=== PATIENT | male | born 1945 | race Caucasian/White ===

== ENCOUNTER 2020-11-07 13:12 | Inpatient (IN) | payer OTHER ==
[~2020-11-07] VITALS: Ht 182.9 cm; Wt 77.1 kg
[2020-11-07 13:17] VITALS: BP 155/87
[2020-11-07] MEDS ORDERED: PRINIVIL20 MG PO (13:37)
[2020-11-07 13:42] LABS: ABSOLUTE NEUTROPHILS 2.9 thou/uL (1.4-8.2); BASOPHILS 0.6 % (0.0-2.0); EOSINOPHILS 2.9 % (0.0-3.0); HEMATOCRIT 41.1 % (42.0-52.0); HEMOGLOBIN 13.2 gm/dL (14.0-18.0); LYMPHOCYTES 22.9 % (24.0-44.0); MCHC 32.1 g/dL (28.0-37.0); MCV 78.1 fL (80.0-100.0); PLATELET COUNT 221 thou/uL (150-400); POLYS 64.6 % (36.0-66.0); RBC 5.26 mil/uL (4.50-6.00); RDW 14.6 % (10.5-14.5); WBC 4.4 thou/uL (4.0-11.0)
[2020-11-07 14:20] LABS: ANION GAP 10 mmol/L (7-16); BUN 17 mg/dL (7-18); CALCIUM 8.7 mg/dL (8.5-10.1); CHLORIDE 106 mmol/L (98-107); CO2 25 mmol/L (21-32); CREATININE 1.4 mg/dL (0.7-1.3); GLUCOSE 103 mg/dL (74-106); POTASSIUM 4.4 mmol/L (3.5-5.1); SODIUM 141 mmol/L (136-145)
[2020-11-07 14:30] LABS: ALBUMIN 3.8 g/dL (3.4-5.0); SGOT 15 U/L (15-37); SGPT 20 U/L (16-63); TOTAL BILIRUBIN 0.4 mg/dL (0.2-1.0); TOTAL PROTEIN 7.4 g/dL (6.4-8.2); TROPONIN-I <0.06 ng/mL (<0.06)
--- NOTE | 2020-11-07 15:01 | EKG ---
[address] [place] [place] [address] ELECTROCARDIOGRAM REPORT Name: ADITYA NEVAREZ Room #: REG Lorenza#: [id number] Admission: 11/07/20 Attend Phys: Discharge: Date of : 47 Report #: [id number] [facility] ED Test Date: 2020-11-07 Test Time: 13:14:35 Pat Name: ADITYA NEVAREZ Department: Room: Gender: M Director Of Grants: ADEN : 1945 Requested By: Capri Yap Order Number: [id number] MD: Zain Ramsey Measurements Intervals [place] Rate: 69 P: 69 GA: 148 QRS: 58 QRSD: 134 T: 32 QT: 413 QTc: 443 Interpretive Statements Sinus rhythm Probable left atrial enlargement Right bundle branch block No previous ECG available for comparison Electronically Signed On 11-07-2020 15:01:42 PERSONNEL COUNSELOR by Zain Ramsey [email or web address] <ELECTRONICALLY SIGNED> By: Zain Ramsey MD 11/07/20 1501 1314 1314 Zain Ramsey MD /BARTOLOME
[2020-11-07 17:01] VITALS: BP 131/70
[2020-11-07 17:19] VITALS: BP 150/73
[2020-11-07 17:51] LABS: % SATURATION 14 % (20-39); IRON 43 ug/dL (65-175); TIBC 298 ug/dL (250-450)
[2020-11-07 17:52] LABS: CHOLESTEROL 150 mg/dL (<200); HDL CHOLESTEROL 36 mg/dL (>40); LDL CHOLESTEROL 99 mg/dL (<100); TC:HDL 4.2 Ratio (Not establshd); TRIGLYCERIDE 79 mg/dL (<150); VLDL 16 mg/dL (<40)
[2020-11-07 18:00] VITALS: BP 150/73
--- NOTE | 2020-11-07 18:28 | NUR ---
PT CARE ASSUMED AT 1745. ASSESSMENTS CHARTED. MEDICATION CHARTED. LAC IV. SINUS RHYTHM. UP AD AYDEN. PT COMPLAINED OF CHEST PAIN UPON EXERTION. NM STRESS TEST SCHEDULED. NPO AFTER 0000. CXR NEGATIVE. NKDA. TROPONIN NORMAL.
[2020-11-07 18:29] LABS: FOLIC ACID 15.7 ng/mL (8.6-58.9)
[2020-11-07 21:10] VITALS: BP 134/86
[2020-11-08] VITALS (14 sets, daily range): BP systolic 113–144; BP diastolic 71–91
--- NOTE | 2020-11-08 04:51 | NUR ---
ASSUMED PT CARE AT 1900. VSS. PT A&0X4. PT HAD A AN UNEVENTFUL NOC. TO COMPLAINTS OF CHEST PAIN, WILL CONTINUE TO MONITOR.
[2020-11-08 04:53] LABS: CALCIUM 8.4 mg/dL (8.5-10.1); CREATININE 1.3 mg/dL (0.7-1.3); MAGNESIUM 2.1 mg/dL (1.8-2.4); POTASSIUM 4.2 mmol/L (3.5-5.1)
[2020-11-08 05:07] LABS: HEMATOCRIT 38.3 % (42.0-52.0); HEMOGLOBIN 12.2 gm/dL (14.0-18.0); MCHC 31.9 g/dL (28.0-37.0); MCV 78.3 fL (80.0-100.0); RBC 4.89 mil/uL (4.50-6.00); WBC 4.7 thou/uL (4.0-11.0)
--- NOTE | 2020-11-08 09:09 | NUR ---
ASSUMED PT CARE AT 0700. PT RESTING IN BED, PT NPO. ASSESSMENT PERFOMED. PT DENIES PAIN AT THIS TIME. VSS. WILL CONTINUE TO MONITOR.
--- NOTE | 2020-11-08 11:53 | NUR ---
PT AWAITING FOR NATURAL GAS FIELD PROCESSING SUPERVISOR. VSS. PTS ASSESSMENT UNCHANGED. WILL CONTINUE TO MONITOR.
--- NOTE | 2020-11-08 14:47 | NUR ---
PT RETURNED FROM NURSE INFORMATICS EDUCATOR. PT DENIES PAIN. PT IS SLEEPY. PTS GROIN SITE IS SOFT, NON TENDER, NO HEMATOMA PRESENT WITH MINX DRESSING. VSS. WILL CONTINUE TO MONITOR.
--- NOTE | 2020-11-08 17:30 | CATHLAB ---
[facility] [place] [address] INVASIVE PROCEDURE REPORT Name: ADITYA NEVAREZ Room #: 208-P ADM IN M.R.#: [id number] Admission: 11/07/20 Attend Phys: Tigre Francois MD Discharge: Date of : 47 Report #: [id number] THIS REPORT FOR: cc: AARON BREWER MD Physician not on staff Alexis Bermudez MD ~ APPROVED REPORT Study performed: 11/08/2020 12:32:40 Patient Details Patient Status: In-Patient Room #: The patient is a 75 year-old male Event Personnel Alexis Bermudez Steam Pressure Chamber Operator, Charmaine Khan RN RN, Alyssa Erwin Monitor, Geraldine Villalta RT(R)() Scrub Procedures Performed Art Access - R femoral artery* 78489 Initial Mod Sed Same Phys/QHP Gr5y 322308 19785 Mod Sed Same Phys/QHP Ea 717231 Left Heart Cath w/or w/o Coronaries 1817082 [facility] Place w/wo Plasty Single LAD 121566 Hemostasis w/ Mynx Indication Dyspnea, Unstable angina , Chest pain Risk Factors Hypercholesterolemia, Hypertension Procedure Narrative The patient was brought urgently to the Cardiac Catheterization Laboratory and was prepped and draped in a sterile manner. The Right Groin^ was infiltrated with 1% Lidocaine subcutaneous anesthesia. A PINNACLE 4FR Sheath #[id number] sheath was inserted into the RFA^. Coronary angiography was performed using coronary diagnostic catheters. The right coronary system was accessed and visualized with a JR 4 catheter. The left coronary system was accessed and visualized with a JL 4 catheter. The left ventricle was accessed and visualized with a JR 4 catheter. Left ventricular/Aortic Valve gradient assessed via catheter pullback. Pre-demployment femoral angiogram was performed . Closure device was deployed with a 6 Fr Mynx. The patient tolerated the procedure well and there were no complications associated with the procedure. There was no hematoma. [facility] [address] [place] [address] INVASIVE PROCEDURE REPORT Name: ADITYA NEVAREZ Room #: 208-P [facility] IN [facility].#: [id number] Admission: 11/07/20 Attend Phys: Tigre Francois, Discharge: Date of : 47 Report #: [id number] Intraoperative Conscious Sedation Sedation start time: 13:14 Case end Time: 14:12 Fentanyl 100 mcg Versed 2 mg Fluoro Time: 9.50 minutes Dose: DAP 9189.00 cGycm2 1350 mGy Contrast Type and Amount: Omnipaque 210 ml Coronary Angiography The patient's coronary anatomy is left dominant. Diagnostic Cath Left Main The left main artery is a large-caliber vessel, patent with no flow-limiting lesions. LAD There is a severe occlusion in the midsegment just after the takeoff of the first diagonal artery, 99%. There is a borderline stenosis in the distal LAD, 60%. Diagonal 1 This is a moderate-sized caliber vessel with mild to moderate disease proximally. Circumflex The left circumflex artery is a dominant vessel with a moderate stenosis in the midsegment, 40%. OM1 This is a patent vessel, with no flow-limiting lesions. OM2 This is a patent vessel, with no flow-limiting lesions. OM3 This is a patent vessel, with no flow-limiting lesions. L PDA There is a moderate stenosis in the proximal segment, 40%. Right Coronary This is a small, nondominant vessel with mild disease. Left Ventriculography Left Ventriculography was not performed. An LVEDP was measured and there is no gradient across the outflow tract. Hemodynamics The aortic pressure is 136/78 mmHg with a mean of 105 mmHg. The left ventricular pressure is 124/8 mmHg with a mean of mmHg. The left ventricular end diastolic pressure is 13 mmHg. PCI Technique Lesion Percutaneous coronary intervention was performed on the mid left anterior descending artery segment. The lesion stenosis prior to intervention was 99% with VERNELL 2 flow. A VISTA 6FR XB 3.5 #[id number] [place] [address] INVASIVE PROCEDURE REPORT Name: GERIADITYA Room #: 208-P [facility] IN M.R.#: [id number] Admission: 11/07/20 Attend Phys: Tigre Francois, Discharge: Date of : 47 Report #: [id number] Guide Catheter was used to engage the ostium. A Luge Wire .014 x 182CM #[id number] Interventional Guidewire was used to cross the lesion. BALLOON DILATION A Balloon catheter Euphora RX 2.25 x 12 #[id number] was inserted and inflated up to 8.00atm for 11seconds. Additional Inflation: 10.00atm for 10seconds. Additional Inflation: 8.00atm for 13seconds. STENT DEPLOYMENT A drug-eluting stent RESOLUTE RONALD RX 2.75 X 22 #[id number] was inserted and inflated up to 10.00atm for 14seconds. POST STENT DEPLOYMENT BALLOON DILATION A Balloon catheter TREK NC RX 2.75 X 8 #[id number] was inserted and inflated up to 16.00atm for 17seconds. Additional Inflation: 18.00atm for 13seconds. Additional Inflation: 18.00atm for 15seconds. Final angiography reveals 0 % stenosis with VERNELL 3 flow. Conclusion 1. Successful insertion of a drug-eluting stent into the mid segment of the LAD. 2. There is a borderline stenosis in the distal LAD. 3. There is moderate disease in the left circumflex artery. 4. Recommend dual antiplatelet therapy and aggressive risk factor management. <ELECTRONICALLY SIGNED> By: Alexis Bermudez MD 11/08/201729 29 29 Alexis Bermudez MD /INF
--- NOTE | 2020-11-08 18:34 | NUR ---
PTS BEDREST UP, PT AMBULATED TO THE BATHROOM, PT EATING ON THE SIDE OF THE BED, PT DENIES PAIN. PTS RIGHT GROIN SITE IS SOFT, NON TENDER, NO HEMATOMA PRESENT. VSS. WILL CONTINUE TO MONITOR.
[2020-11-09 00:44] VITALS: BP 123/73
[2020-11-09 04:45] VITALS: BP 126/86
[2020-11-09 05:03] LABS: HEMATOCRIT 38.3 % (42.0-52.0); HEMOGLOBIN 12.3 gm/dL (14.0-18.0); MCH 25.1 pg (26.0-34.0); MCV 78.4 fL (80.0-100.0); RBC 4.89 mil/uL (4.50-6.00); RDW 14.9 % (10.5-14.5); WBC 4.8 thou/uL (4.0-11.0)
--- NOTE | 2020-11-09 05:20 | NUR ---
PT RESTING QUIETLY THRU THE NOC, RIGHT GROIN SITE REMAINS CDI, VSS, NO C/O PAIN, UP ADLIB IN ROOM, HOPING TO GO HOME TODAY, WILL CON'T TO MONITOR PER PPOC.
[2020-11-09 05:30] LABS: ALBUMIN 3.3 g/dL (3.4-5.0); CALCIUM 8.2 mg/dL (8.5-10.1); CREATININE 1.4 mg/dL (0.7-1.3); POTASSIUM 3.9 mmol/L (3.5-5.1); TOTAL BILIRUBIN 0.6 mg/dL (0.2-1.0); TOTAL PROTEIN 6.4 g/dL (6.4-8.2)
--- NOTE | 2020-11-09 07:03 | EKG ---
[address] [address] ELECTROCARDIOGRAM REPORT Name: ADITYA NEVAREZ Room #: 208-P ADM IN M.R.#: [id number] Admission: 11/07/20 Attend Phys: Tigre Francois MD Discharge: Date of : 47 Report #: [id number] [facility] Test Date: 2020-11-08 Test Time: 17:27:52 Pat Name: ADITYA NEVAREZ Department: Room: 208 P Gender: M Bail Bonding Agent: VANDANA : 1945 Requested By: Alexis Bermudez Order Number: [id number] MD: Marcio Mcbride Measurements Intervals [place] Rate: 73 P: 61 DE: 143 QRS: 30 QRSD: 137 T: 5 QT: 418 QTc: 461 Interpretive Statements Sinus rhythm Right bundle branch block Compared to ECG 11/07/2020 13:14:35 No significant changes Electronically Signed On 11-09-2020 7:03:38 PULP MILL TEAM LEADER by Marcio Mcbride [email or web address] <ELECTRONICALLY SIGNED> By: Marcio Mcbride MD, [facility] 11/09/20702 26 26 Marcio Mcbride MD, FACC /EPI
--- NOTE | 2020-11-09 07:42 | EKG ---
[address] [place] [address] ELECTROCARDIOGRAM REPORT Name: LYDIAChayaADITYA Room #: 208-P ADM IN M.R.#: [id number] Admission: 11/07/20 Attend Phys: Tigre Francois MD Discharge: Date of : 47 Report #: [id number] [facility] Test Date: 2020-11-09 Test Time: 07:06:12 Pat Name: ADITYA NEVAREZ Department: Room: 208 P Gender: M Sculpture Instructor: SUSANNA : 1945 Requested By: Alexis Bermudez Order Number: [id number] MD: Flash Sommer Measurements Intervals [place] Rate: 73 P: 61 NC: 143 QRS: 32 QRSD: 131 T: -26 QT: 385 QTc: 425 Interpretive Statements Sinus rhythm Right bundle branch block Compared to ECG 11/08/2020 17:27:52 No significant changes Electronically Signed On 11-09-2020 7:41:54 SENIOR FINANCIAL ANALYST by Flash Sommer [email or web address] <ELECTRONICALLY SIGNED> By: Flash Sommer MD, [facility] 11/09/20 0741 5 5 Flash Sommer MD, FACC /EPI
[2020-11-09 08:23] VITALS: BP 130/73
[2020-11-09] MEDS ORDERED: LIPITOR40 MG PO (09:57)
[2020-11-09] MEDS ORDERED: ASPIRIN325 PO (09:57)
[2020-11-09] MEDS ORDERED: EFFIENT10 MG PO (09:57)
--- NOTE | 2020-11-09 10:04 | NUR ---
AAOX4. DENIES CP, SOA. SB PER TELE. DR. KENT CLEARS FOR DISCHARGE. FALL PRECAUTIONS IN PLACE.
[2020-11-09 10:11] VITALS: BP 130/73
[2020-11-09 11:50] VITALS: BP 122/75
--- NOTE | 2020-11-09 12:53 | NUR ---
SALINE LOCK, TELE DISCONTINUED. TELE SECURED. DISCHARGE INSTRUCTIONS GIVEN, ORAL AND PRINTED.
== END 2020-11-09 13:06 | disposition home or self-care (01) | DRG 247 ==
LOC: ER 13:12 → EROBS 15:36 → 2N 15:36
PROVIDERS: Emergency Medicine; Internal Medicine Cardiovascular Disease; ADMIT Internal Medicine; ATTEND Internal Medicine
DX: I25.110 Atherosclerotic heart disease of native coronary artery with unstable angina pectoris (principal); I12.9 Hypertensive chronic kidney disease with stage 1 through stage 4 chronic kidney disease, or unspecified chronic kidney disease; N18.30 Chronic kidney disease, stage 3 unspecified; E78.5 Hyperlipidemia, unspecified; R53.81 Other malaise; N40.0 Benign prostatic hyperplasia without lower urinary tract symptoms; E53.8 Deficiency of other specified B group vitamins; D53.9 Nutritional anemia, unspecified; Z79.899 Other long term (current) drug therapy
CPT/HCPCS: 10081

== ENCOUNTER → 2020-11-23 | Outpatient (CLI) | payer OTHER ==
[~2020-11-23] MED LIST: ASPIRIN325 PO; EFFIENT10 MG PO; LIPITOR40 MG PO; PRINIVIL20 MG PO
== END ==
LOC: SJCVC 16:34
PROVIDERS: ATTEND Internal Medicine Cardiovascular Disease
DX: I45.10 Unspecified right bundle-branch block (principal); R94.31 Abnormal electrocardiogram [ECG] [EKG]; I25.10 Atherosclerotic heart disease of native coronary artery without angina pectoris; I10 Essential (primary) hypertension; E78.00 Pure hypercholesterolemia, unspecified; R09.89 Other specified symptoms and signs involving the circulatory and respiratory systems; E78.5 Hyperlipidemia, unspecified; Z79.82 Long term (current) use of aspirin; Z79.899 Other long term (current) drug therapy; Z98.61 Coronary angioplasty status

== ENCOUNTER → 2020-12-23 | Outpatient (CLI) | payer OTHER | LOC: SJCVCIMAG 09:06 | PROVIDERS: ATTEND Internal Medicine Cardiovascular Disease | DX: I35.1 Nonrheumatic aortic (valve) insufficiency (principal); I65.23 Occlusion and stenosis of bilateral carotid arteries; I10 Essential (primary) hypertension; I11.0 Hypertensive heart disease with heart failure; I25.10 Atherosclerotic heart disease of native coronary artery without angina pectoris; E78.00 Pure hypercholesterolemia, unspecified; R07.9 Chest pain, unspecified; E78.5 Hyperlipidemia, unspecified; Z79.82 Long term (current) use of aspirin; Z79.899 Other long term (current) drug therapy ==

== ENCOUNTER → 2021-06-30 | Outpatient (CLI) | payer OTHER | LOC: SJCVCIMAG 07:10 | PROVIDERS: ATTEND Internal Medicine Cardiovascular Disease | DX: I25.10 Atherosclerotic heart disease of native coronary artery without angina pectoris (principal); I10 Essential (primary) hypertension; E78.00 Pure hypercholesterolemia, unspecified; I35.1 Nonrheumatic aortic (valve) insufficiency; E78.5 Hyperlipidemia, unspecified; I15.9 Secondary hypertension, unspecified; Z79.82 Long term (current) use of aspirin; Z79.899 Other long term (current) drug therapy ==